=== PATIENT | male | born 1960 ===

== ENCOUNTER 2017-01-06 05:58 | Day surgery (SDC) | payer MEDICAID ==
[2016-12-17 08:36] VITALS: BMI 26.0
[2017-01-06 06:54] VITALS: O2SAT 100
[2017-01-06] MEDS ORDERED: Midazolam 2 MG/2 ML VIAL ONE (07:54)
[2017-01-06] MEDS ORDERED: Propofol 10 mg/ml Inj (20 ML) ONE (07:59)
[2017-01-06] MEDS ORDERED: Lactated Ringer's 500 ML IV ONE (08:03)
[2017-01-06 10:05] VITALS: BP 128/64; PULSE 60; RESP 16; TEMP 96.5
== END 2017-01-06 09:45 | disposition home or self-care (01) ==
LOC: C.ENDO 05:58
PROVIDERS: ATTEND Internal Medicine Gastroenterology
DX: Z12.11 Encounter for screening for malignant neoplasm of colon (principal); K62.1 Rectal polyp; K64.1 Second degree hemorrhoids
CPT/HCPCS: 45385; 82948; 88305; 88342; J2250; J2704; J7040; J7120